=== PATIENT | male | born 1965 | race African-American/Black ===

== ENCOUNTER 2017-08-18 15:44 | Emergency (ER) | payer OTHER ==
[~2017-08-18] VITALS: Ht 182.9 cm; Wt 127.0 kg
[~2017-08-18 15:44] MED LIST: GLU500 PO
[2017-08-18 16:05] VITALS: BP 144/82
[2017-08-18] MEDS ORDERED: LIDOCAINE 1% 500 MG/50 ML VIAL INJ SCH (16:55)
[2017-08-18] MEDS ORDERED: IBUPROFEN 600 MG TAB PO ONE (16:55)
[2017-08-18] MEDS ORDERED: LIDOCAINE 2% 1000 MG/50 ML VIAL INJ ONE (17:04)
[2017-08-18] MEDS ORDERED: BACITRACIN OINT 500 UNITS/GM PKT TP ONE (17:34)
[2017-08-18 18:01] VITALS: BP 144/82
== END 2017-08-18 18:02 | disposition home or self-care (01) ==
LOC: MED 15:44
DX: M79.674 Pain in right toe(s) (principal); E11.9 Type 2 diabetes mellitus without complications; I10 Essential (primary) hypertension
CPT/HCPCS: 11730; 99283; J2001; 99284

== ENCOUNTER 2017-08-20 11:48 | Emergency (ER) | payer OTHER ==
[~2017-08-20] VITALS: Ht 185.4 cm; Wt 127.5 kg
[2017-08-20 11:58] VITALS: BP 130/77
--- NOTE | 2017-08-20 12:05 | NUR ---
51 m bib self with c/o bl lower and mid back pain x 1 week. Patient denies any injury. Pateint also seen 08/18/2017 for nail avulsion right great toe and nail removed. Patient instructed to come in for wound check. Pt is aox4 with steady gait. RR are even and unlabored. VSS. Awaiting er md duarte. Will continue to monitor.
[2017-08-20 13:09] VITALS: BP 130/77
--- NOTE | 2017-08-20 13:09 | NUR ---
Patient discharged with v/s stable. Written and verbal after care instructions given and explained. Patient verbalized understanding. Ambulatory with steady gait. All questions addressed prior to discharge. Advised to follow up with PMD.
== END 2017-08-20 13:09 | disposition home or self-care (01) ==
LOC: MED 11:48
DX: Z48.01 Encounter for change or removal of surgical wound dressing (principal); E11.9 Type 2 diabetes mellitus without complications; I10 Essential (primary) hypertension
CPT/HCPCS: 99281

== ENCOUNTER 2017-08-22 14:53 | Emergency (ER) | payer OTHER ==
[~2017-08-22] VITALS: Ht 182.9 cm; Wt 128.4 kg
[2017-08-22 15:08] VITALS: BP 134/80
--- NOTE | 2017-08-22 15:13 | NUR ---
Patient ambulated to bed 6. RN evaluating patient at bedside.
--- NOTE | 2017-08-22 15:15 | NUR ---
REPORT GIVEN TO HENRY FLYNN
--- NOTE | 2017-08-22 15:24 | NUR ---
51 YO M TO ER FOR GENERALIZED UPPER BODY PAIN X1.5 WKS. PT STATES SHOOTHING PAIN FROM UPPER/MID BACK TO BILATERAL RIBS, SHOULDERS, AND UPPER CHEST. PT DENIES ANY TRAUMA OR INCREASED WORKLOAD. PT CARRIES PORTABLE VACUUM ON BACK FOR WORK. PT DENIES ANY SOB, COUGH, FEVER, OR N/V/D. PT TENDER TO TOUCH ON UPPER BACK AND BILATERAL SHOULDERS. NO OTHER MEDICAL COMPLAINTS. ER MD MADE AWARE. WILL CONTINUE TO MONITOR. PT POSITIONED FOR COMFORT.
--- NOTE | 2017-08-22 15:29 | NUR ---
Dr. Walters evaluating patient at bedside.
--- NOTE | 2017-08-22 15:41 | NUR ---
LAB AT BEDSIDE
[2017-08-22 15:47] LABS: BASOPHILS # (AUTO) 0.1 K/uL (0.00-0.22); BASOPHILS % (AUTO) 0.8 % (0.0-2.0); EOSINOPHILS # (AUTO) 0.2 K/uL (0-0.4); EOSINOPHILS % (AUTO) 2.1 % (0.0-4.0); HEMATOCRIT 40.1 % (36-52); HEMOGLOBIN 13.6 g/dL (12.0-18.0); LYMPHOCYTES # (AUTO) 1.9 K/uL (2.0-11.5); LYMPHOCYTES % (AUTO) 25.8 % (20.5-51.1); MEAN CORPUSCULAR HEMOGLOBIN 27 pg (27-31); MEAN CORPUSCULAR HGB CONC 34 g/dL (33-37); MEAN CORPUSCULAR VOLUME 78.6 fL (80-94); MONOCYTES # (AUTO) 0.5 K/uL (0.8-1.0); MONOCYTES % (AUTO) 6.8 % (1.7-9.3); NEUTROPHILS # (AUTO) 4.8 K/uL (1.8-7.7); NEUTROPHILS % (AUTO) 64.5 % (42.2-75.2); PLATELET COUNT (AUTO) 222 K/uL (140-450); RED CELL DISTRIBUTION WIDTH 14.1 % (11.6-13.7); WHITE BLOOD COUNT (AUTO) 7.4 K/uL (4.8-10.8)
[2017-08-22 16:04] LABS: ALBUMIN 3.5 g/dL (3.4-5.0); ANION GAP 10.7 (8-16); CARBON DIOXIDE 28.2 mmol/L (21-32); CREATININE 0.8 mg/dL (0.7-1.3); POTASSIUM 3.9 mmol/L (3.5-5.1); TOTAL BILIRUBIN 0.7 mg/dL (0.0-1.0)
[2017-08-22] MEDS ORDERED: KETOROLAC 60 MG/2 ML VIAL IM ONE (16:10)
[2017-08-22 16:39] VITALS: BP 138/82
== END 2017-08-22 16:39 | disposition home or self-care (01) ==
LOC: MED 14:53
DX: M79.1 Myalgia (principal); I10 Essential (primary) hypertension; E11.9 Type 2 diabetes mellitus without complications; Z79.4 Long term (current) use of insulin
CPT/HCPCS: 36415; 80053; 82550; 85025; 96372; 99284; J1885

== ENCOUNTER 2017-11-12 18:31 | Emergency (ER) | payer SELFPAY ==
[~2017-11-12] VITALS: Ht 185.4 cm; Wt 129.3 kg
[2017-11-12 18:48] VITALS: BP 129/87
[2017-11-12 18:54] VITALS: BP 129/87
[2017-11-12] MEDS: KETOROLAC 30 MG/ML VIAL IM ONE (19:25)
== END 2017-11-12 19:25 | disposition home or self-care (01) ==
LOC: MED 18:31
DX: M25.551 Pain in right hip (principal); H66.91 Otitis media, unspecified, right ear; E11.9 Type 2 diabetes mellitus without complications; I10 Essential (primary) hypertension; Z79.84 Long term (current) use of oral hypoglycemic drugs
CPT/HCPCS: 99283

== ENCOUNTER 2018-05-05 22:36 | Emergency (ER) | payer OTHER ==
[~2018-05-05] VITALS: Ht 182.9 cm; Wt 122.2 kg
[2018-05-05 22:38] VITALS: BP 141/80
--- NOTE | 2018-05-05 22:40 | NUR ---
EKG PERFORMED IN TRIAGE ROOM WITH TRIAGE NURSE PRESENT
--- NOTE | 2018-05-05 22:44 | NUR ---
TO ED 03 WITH STEADY GAIT.
[2018-05-05] MEDS ORDERED: NACL 0.9% 1,000 ML IV ONE (22:55)
[2018-05-05] MEDS ORDERED: ASPIRIN 81 MG TAB.CHEW PO ONE (22:55)
--- NOTE | 2018-05-05 22:57 | NUR ---
PATIENT PRESENTS TO ED WITH C/O CHEST PAIN BUT POINT OUT FABRICIO. UPPER ABDOMEN CRAMPING PAIN 09/08 STARTING AT WORK 2 HOURS AGO, HX OF HTN, DM. DENIES SOB, N/V/D. AAOX4 WITH EVEN AND STEADY GAIT; LUNGS CLEAR BL; HR EVEN AND REGULAR; SKIN IS WARM AND DRY TO TOUCH, VSS; PATIENT POSITIONED FOR COMFORT; HOB ELEVATED; BEDRAILS UP X2; BED DOWN. ER MD MADE AWARE OF PT STATUS.
--- NOTE | 2018-05-05 23:04 | NUR ---
Patient being evaluated by physician at bedside.
[2018-05-05 23:12] LABS: BASOPHILS % (AUTO) 0.3 % (0.0-2.0); EOSINOPHILS # (AUTO) 0.1 K/uL (0-0.4); EOSINOPHILS % (AUTO) 1.6 % (0.0-4.0); HEMATOCRIT 41.2 % (36-52); HEMOGLOBIN 13.5 g/dL (12.0-18.0); LYMPHOCYTES # (AUTO) 2.4 K/uL (2.0-11.5); LYMPHOCYTES % (AUTO) 31.5 % (20.5-51.1); MEAN CORPUSCULAR HEMOGLOBIN 26 pg (27-31); MEAN CORPUSCULAR HGB CONC 33 g/dL (33-37); MEAN CORPUSCULAR VOLUME 80.7 fL (80-94); MONOCYTES # (AUTO) 0.5 K/uL (0.8-1.0); MONOCYTES % (AUTO) 6.4 % (1.7-9.3); NEUTROPHILS # (AUTO) 4.6 K/uL (1.8-7.7); NEUTROPHILS % (AUTO) 60.2 % (42.2-75.2); PLATELET COUNT (AUTO) 228 K/uL (140-450); RED BLOOD CELL COUNT(AUTO) 5.11 MIL/uL (4.20-6.10); RED CELL DISTRIBUTION WIDTH 13.7 % (11.6-13.7); WHITE BLOOD COUNT (AUTO) 7.7 K/uL (4.8-10.8)
[2018-05-05 23:21] LABS: ANION GAP 11.9 (8-16); CARBON DIOXIDE 26.6 mmol/L (21-32); POTASSIUM 3.5 mmol/L (3.5-5.1)
[2018-05-05 23:29] LABS: ALBUMIN 3.4 g/dL (3.4-5.0); TOTAL BILIRUBIN 0.7 mg/dL (0.0-1.0)
[2018-05-05] MEDS ORDERED: KETOROLAC 30 MG/ML VIAL IVP ONE (23:30)
[2018-05-05 23:31] LABS: PROTHROMBIN TIME 9.4 secs (10.8-13.4)
[2018-05-05] MEDS ORDERED: INSULIN REGULAR, HUMAN 100 UNIT/ML VIAL IVP ONE (23:40)
[2018-05-06 00:29] VITALS: BP 122/81
== END 2018-05-06 00:30 | disposition home or self-care (01) ==
LOC: MED 22:36
DX: R07.89 Other chest pain (principal); I10 Essential (primary) hypertension; E11.9 Type 2 diabetes mellitus without complications; Z79.84 Long term (current) use of oral hypoglycemic drugs
CPT/HCPCS: 36415; 71045; 80053; 84484; 85025; 85610; 85730; 93005; 96361; 96372; 96374; 99284; J1815; J1885; J7030; Q0092; 96375